=== PATIENT | male | born 1935 | race Caucasian/White ===

== ENCOUNTER 2021-05-21 17:38 | Inpatient (IN) | payer MEDICARE ==
[2021-05-21] MEDS ORDERED: Sodium Chloride 0.9% 1,000 ML IV SCH ×2 (18:45→23:45)
--- NOTE | 2021-05-21 20:27 | EDM.PDOC ---
ED HPI GENERAL MEDICAL PROBLEM - General Chief Complaint: Respiratory Problem Stated Complaint: DIZZY VIA NORTH Time Seen by Provider: 05/21/21 18:29 Source of Information: Reports: Patient History Limitations: Reports: No Limitations - History of Present Illness INITIAL COMMENTS - FREE TEXT/NARRATIVE: Luis Manuel is an 85-year-old male presenting to the ED for evaluation of lighthea dedness for the last 3 days followed by shortness of breath that started 2 days ago and has progressed. The patient has a history significant for cardiac disease status post three-vessel CABG in 1995. He has a history of congestive heart failure. He also has a history of COPD from working in the [employer] industry for 36 years. In addition, he has BPH, hypertension, and hyperlipidemia. The patient was in his usual state of health when the dizziness began. He is not sure if he has been taking enough fluid. Today he was checking his home oxygen saturations and they were low in the 80s. He tried to use his rescue inhaler, however, he did not feel any better and EMS was called. He did receive a DuoNeb in route and had improvement in his oxygenation and his breathing. The patient is also been experiencing intermittent epigastric pain over the last 2 days. Episodes last a few seconds and are sharp and stabbing. They are not associated with any nausea or vomiting. Mid-Sternal Chest Pain Score (Numeric/FACES): 5 - Related Data Allergies Allergy/AdvReac Type Severity Reaction Status Date / Time amoxicillin Allergy Diarrhea Verified 05/21/21 18:19 benzocaine Allergy Nausea Verified 05/21/21 18:19 Penicillins Allergy Cannot Verified 05/21/21 17:46 Remember ramipril Allergy Cough Verified 05/21/21 18:19 Home Meds: Home Meds Albuterol [Proventil Neb Soln] 1 ampule INH QID PRN 05/21/21 [History] Aspirin 81 mg PO DAILY 05/21/21 [History] Aspirin/Dipyridamole [Aggrenox 200-25 MG] 1 cap PO BID 05/21/21 [History] Azithromycin 250 mg PO DAILY 05/21/21 [History] Budesonide/Formoterol Fumarate [Symbicort 160-4.5 Mcg Inhaler] 2 puff IH BID 05/21/21 [History] Cetirizine [ZyrTEC] 10 mg PO DAILY 05/21/21 [History] ClonazePAM [KlonoPIN] 0.5 mg PO BID PRN 05/21/21 [History] Finasteride 5 mg PO DAILY 05/21/21 [History] Fluticasone Propionate [Flonase] 2 spray NASBOTH DAILY 05/21/21 [History] Folic Acid 0.8 mg PO DAILY 05/21/21 [History] Furosemide [Lasix] 40 mg PO Q48H 05/21/21 [History] Gabapentin [Neurontin] 300 mg PO TID 05/21/21 [History] Ipratropium [Atrovent HFA Inh] 1 puff INH Q6H PRN 05/21/21 [History] Isosorbide Mononitrate [Imdur] 15 mg PO DAILY 05/21/21 [History] Metoprolol Tartrate 50 mg PO BID 05/21/21 [History] NIFEdipine [Adalat cc] 60 mg PO DAILY 05/21/21 [History] Nitroglycerin 0.4 mg SL ASDIRECTED PRN 05/21/21 [History] Omeprazole 20 mg PO ACBREAKFAST 05/21/21 [History] Roflumilast [Daliresp] 500 mcg PO DAILY 05/21/21 [History] Sertraline [Zoloft] 150 mg PO DAILY 05/21/21 [History] Simethicone 80 mg PO QID PRN 05/21/21 [History] Tamsulosin [Tamsulosin 24 Hr] 0.4 mg PO BEDTIME 05/21/21 [History] Timolol [Betimol] 1 drop OP BEDTIME 05/21/21 [History] Zolpidem Tartrate [Ambien] 5 mg PO BEDTIME 05/21/21 [History] atorvaSTATin [Lipitor] 40 mg PO BEDTIME 05/21/21 [History] guaiFENesin [Mucinex] 1,200 mg PO DAILY 05/21/21 [History] Past Medical History HEENT History: Reports: Cataract Cardiovascular History: Reports: Bypass, Heart Failure, High Cholesterol, Hypertension, [place], SOB on Exertion Respiratory History: Reports: COPD Gastrointestinal History: Reports: Other (See Below) Other Gastrointestinal History: Hernia Genitourinary History: Reports: Urinary Incontinence Musculoskeletal History: Reports: Fracture - Past Surgical History HEENT Surgical History: Reports: Cataract Surgery Cardiovascular Surgical History: Reports: Coronary Artery Bypass Social & Family History - Tobacco Use Tobacco Use Status *Q: Never Tobacco User - Caffeine Use Caffeine Use: Reports: Coffee - Recreational Drug Use Recreational Drug Use: No ED ROS GENERAL - Review of Systems Review Of Systems: See Below Constitutional: Reports: Malaise HEENT: Reports: No Symptoms Respiratory: Reports: Shortness of Breath, Wheezing, Cough. Denies: Sputum Cardiovascular: Reports: Edema, Lightheadedness Endocrine: Reports: No Symptoms GI/Abdominal: Reports: Abdominal Pain (Intermittent sharp, stabbing epigastric pain lasting a few seconds.) : Reports: No Symptoms Musculoskeletal: Reports: No Symptoms Skin: Reports: No Symptoms Neurological: Reports: No Symptoms Psychiatric: Reports: No Symptoms Hematologic/Lymphatic: Reports: No Symptoms Immunologic: Reports: No Symptoms ED EXAM, GENERAL - Physical Exam Exam: See Below Exam Limited By: No Limitations General Appearance: Alert, Mild Distress Eye Exam: Bilateral Eye: EOMI, PERRL Throat/Mouth: Normal Inspection, Normal Oropharynx, Normal Voice, No Airway Compromise Head: Atraumatic, Normocephalic Neck: Normal Inspection, Supple, Non-Tender, Full Range of Motion. No: Carotid Bruit Respiratory/Chest: No Respiratory Distress, No Accessory Muscle Use, Chest Non- Tender, Decreased Breath Sounds (In the bases bilaterally), Wheezing (Scant inspiratory with pronounced expiratory wheezes throughout the lung rose bilaterally.), Prolonged Expiration Cardiovascular: Normal Peripheral Pulses, Regular Rate, Rhythm, Systolic Murmur (3/6 systolic ejection murmur) Peripheral Pulses: 2+: Radial (L), Radial (R), Posterior Tibial (L), Posterior Tibial (R) GI/Abdominal: Normal Bowel Sounds, Soft, Non-Tender Back Exam: Normal Inspection Extremities: Normal Inspection, Normal Range of Motion, Pedal Edema (1+) Neurological: Alert, Oriented, Normal Cognition, No Motor/Sensory Deficits Psychiatric: Normal Affect Skin Exam: Warm, Dry, Intact, Normal Color Lymphatic: No Adenopathy #1 Interpretation EKG Date: 05/21/21 Time: 18:52 Rhythm: NSR Rate (Beats/Min): 71 [place]: Normal P-Wave: Present (Prolonged VA interval at 246 ms) QRS: Normal (Nonspecific interventricular conduction delay) ST-T: Normal QT: Prolonged Comparison: NA - No Prior EKG Course - Vital Signs Last Recorded V/S: Last Vital Signs Temp 36.4 C 05/21/21 20:46 Pulse 73 05/21/21 20:46 Resp 18 05/21/21 20:46 BP 135/87 05/21/21 20:46 Pulse Ox 98 05/21/21 20:46 Orthostatic Blood Pressure [ 126/70 Standing] Orthostatic Blood Pressure [ 138/73 Sitting] Orthostatic Blood Pressure [ 134/72 Supine] - Orders/Labs/Meds Orders: Active Orders 24 hr Category Date Time Status EKG Documentation Completion [RC] ASDIRECTED Care 05/21/21 18:43 Active Orthostatic Vital Signs [RC] ASDIRECTED Care 05/21/21 17:43 Active Chest 2V [CR] Stat Exams 05/21/21 18:43 Taken Sodium Chloride 0.9% [Normal Saline] 1,000 ml Med 05/21/21 18:45 Active IV ASDIRECTED EKG 12 Lead [EK] Routine Ther 05/21/21 18:43 Ordered Medication Orders Sodium Chloride (Normal Saline) 1,000 mls @ 500 mls/hr IV ASDIRECTED FRANCO Last Admin: 05/21/21 18:58 Dose: 500 mls/hr Documented by: AVILA Labs: Laboratory Tests 05/21/21 05/21/21 05/21/21 Range/Units 18:50 18:50 19:00 WBC 7.3 (4.5-11.0) K/uL RBC 3.79 L (4.30-5.90) M/uL Hgb 12.4 (12.0-15.0) g/dL Hct 38.6 L (40.0-54.0) % MCV 102 H (80-98) fL MCH 33 H (27-31) pg MCHC 32 (32-36) % Plt Count 164 (150-400) K/uL Neut % (Auto) 60.2 (36-66) % Lymph % (Auto) 24.6 (24-44) % [place] % (Auto) 12.7 H (2-6) % Eos % (Auto) 2.2 (2-4) % Baso % (Auto) 0.3 (0-1) % Sodium 142 (140-148) mmol/L Potassium 3.3 L (3.6-5.2) mmol/L Chloride 103 (100-108) mmol/L Carbon Dioxide 27 (21-32) mmol/L Anion Gap 15.3 H (5.0-14.0) mmol/L BUN 24 H (7-18) mg/dL Creatinine 1.6 H (0.8-1.3) mg/dL Est Cr Clr Drug Dosing 32.13 mL/min Estimated GFR (MDRD) 41 L (>60) Glucose 101 (74-106) mg/dL Calcium 8.7 (8.5-10.1) mg/dL Total Bilirubin 0.3 (0.2-1.0) mg/dL AST 17 (15-37) U/L ALT 24 (12-78) U/L Alkaline Phosphatase 60 (46-116) U/L Troponin I < 0.017 (0.000-0.056) ng/mL NT-Pro-B Natriuret Pep 1699 H (5-450) pg/mL Total Protein 6.3 L (6.4-8.2) g/dL Albumin 3.6 (3.4-5.0) g/dL Globulin 2.7 (2.3-3.5) g/dL Albumin/Globulin Ratio 1.3 (1.2-2.2) Urine Color Yellow (YELLOW) Urine Appearance Clear (CLEAR) Urine pH 5.5 (5.0-8.0) Ur Specific [place] <= 1.005 L (1.008-1.030) Urine Protein 30 H (NEGATIVE) mg/dL Urine Glucose (UA) Negative (NEGATIVE) mg/dL Urine Ketones Negative (NEGATIVE) mg/dL Urine Occult Blood Negative (NEGATIVE) Urine Nitrite Negative (NEGATIVE) Urine Bilirubin Negative (NEGATIVE) Urine Urobilinogen 0.2 (0.2-1.0) EU/dL Ur Leukocyte Esterase Negative (NEGATIVE) Urine RBC Not seen (0-5) Urine WBC Not seen (0-5) Ur Epithelial Cells Not seen Amorphous Sediment Not seen Urine Bacteria Not seen Urine Mucus Not seen Urine Other Meds: Medications Generic Name Dose Route Start Last Admin Trade Name Freq PRN Reason Stop Dose Admin Sodium Chloride 1,000 mls @ 500 mls/hr 05/21/21 18:45 05/21/21 18:58 Normal Saline IV 500 mls/hr ASDIRECTED FRANCO Administration Discontinued Medications Generic Name Dose Route Start Last Admin Trade Name Freq PRN Reason Stop Dose Admin Al Hydroxide/Mg Hydroxide 15 0 ml 05/21/21 20:43 05/21/21 21:05 ml/ Lidocaine HCl 15 ml PO 05/21/21 20:44 30 ml ONETIME ONE Administration - Radiology Interpretation Free Text/Narrative:: I reviewed the two-view chest x-ray showing hyperinflation of the lungs. Very torturous thoracic aorta and normal cardiac silhouette. There is no evidence for acute infiltrates. - Re-Assessments/Exams Free Text/Narrative Re-Assessment/Exam: 05/21/21 20:36 I reviewed the patient's chest x-ray showing hyperinflation and fibrosis consistent with COPD. He has a very torturous thoracic aorta and normal cardiac silhouette. I reviewed his labs showing a leukocyte count of 7.3 with a hemoglobin of 12.4 and hematocrit of 38.6. Platelet count is 164,000. His comprehensive metabolic panel is significant for sodium 142, potassium 3.3, chloride of 103, bicarbonate of 27, BUN of 24 with a creatinine 1.6. His glucose is 101. Troponin is negative at less than 0.017. BNP is elevated at 1699. Urinalysis was unremarkable. Appears to be acute exacerbation of COPD. The patient is already on an aggressive assortment of inhalers. The has concerns about taking him home given his limited mobility at this time. Normally he is able ambulate without assistance. 05/21/21 21:45 nursing got the patient up and tried to ambulate with him. He desatted very quickly to below 89% on room air. He was fairly unsteady on his feet raising concern about fall at home. Given his acute exacerbation of COPD with hypoxia and his increased unsteadiness, I am recommending that we probably admit him for further care. I discussed the case with Ashlee Lawrence CNP who agrees with this plan. Departure - Departure Time of Disposition: 22:26 Disposition: Admitted As Inpatient 67 Clinical Impression: Acute exacerbation of chronic obstructive pulmonary disease (COPD), Gait instability, Hypoxia - Discharge Information Referrals: PCP,None [Primary Care Provider] - Forms: ED Department Discharge Sepsis Event Note (ED) - Evaluation Sepsis Screening Result: No Definite Risk - Focused Exam Vital Signs: Vital Signs Temp Pulse Resp BP Pulse Ox 05/21/21 20:46 36.4 C 73 18 135/87 98 05/21/21 20:16 72 18 116/83 97 05/21/21 19:02 72 14 140/75 98 05/21/21 18:38 72 16 142/78 H 97 05/21/21 17:51 36.6 C 73 17 144/78 H 99 05/21/21 17:49 36.6 C 73 17 144/78 H 99 - Problem List & Annotations (1) Acute exacerbation of chronic obstructive pulmonary disease (COPD) SNOMED Code(s): 607433631 Code(s): J44.1 - CHRONIC OBSTRUCTIVE PULMONARY DISEASE W (ACUTE) EXACERBATION Status: Acute Priority: High Current Visit: Yes (2) Gait instability SNOMED Code(s): 41310047 Code(s): R26.81 - UNSTEADINESS ON FEET Status: Acute Priority: High Current Visit: Yes (3) Hypoxia SNOMED Code(s): 249943142 Code(s): R09.02 - HYPOXEMIA Status: Acute Priority: High Current Visit: Yes - Problem List Review Problem List Initiated/Reviewed/Updated: Yes - My Orders Last 24 Hours: My Active Orders 05/21/21 18:43 EKG Documentation Completion [RC] ASDIRECTED Chest 2V [CR] Stat EKG 12 Lead [EK] Routine 05/21/21 18:45 Sodium Chloride 0.9% [Normal Saline] 1,000 ml IV ASDIRECTED - Assessment/Plan Last 24 Hours: My Active Orders 05/21/21 18:43 EKG Documentation Completion [RC] ASDIRECTED Chest 2V [CR] Stat EKG 12 Lead [EK] Routine 05/21/21 18:45 Sodium Chloride 0.9% [Normal Saline] 1,000 ml IV ASDIRECTED
[2021-05-21] MEDS ORDERED: Alum Hydrox/Mag Hydrox/Simeth 15 ML, Lidocaine 2% 15 ML PO ONE ×2 (20:43)
--- NOTE | 2021-05-21 23:04 | PCM.HP.2 ---
H&P History of Present Illness - General Date of Service: 05/21/21 Admit Problem/Dx: Admission Diagnosis/Problem Admission Diagnosis/Problem Chronic obstructive pulmonary disease with hypoxia Source of Information: Patient, EMS Notes Reviewed, Provider, RN History Limitations: Reports: No Limitations - History of Present Illness Initial Comments - Free Text/Narative: chief complaint: shortness of breath. This is a 85 year old male presents to the ER via EMS, reports in on vacation at one of the local resorts near [place], [place]. for one week. Develops shortness of breath about 4 days ago with the past two days increase in symptoms. Reports f eeling dizzy, headache, shortness of breath with any type of activity. He had a painful cough. weakness more today and increased difficulty with walking. Today could not get up and ambulance was called Onset of Symptoms: Reports: Gradual Symptom Onset Date: 05/18/21 Duration of Symptoms: Reports: Day(s):, Getting Worse Location: Reports: Chest, Generalized Quality: Reports: Same as Previous Episode Severity: Moderate Improves with: Reports: Rest Worsens with: Reports: Movement Context: Reports: Other (excerbation of chronic disease) Associated Symptoms: Reports: Cough (painful cough), Fever/Chills (chills today without fever.), Shortness of Breath, Weakness Mid-Sternal Chest Pain Score (Numeric/FACES): 5 - Related Data Allergies/Adverse Reactions: Allergies Allergy/AdvReac Type Severity Reaction Status Date / Time amoxicillin Allergy Diarrhea Verified 05/21/21 18:19 benzocaine Allergy Nausea Verified 05/21/21 18:19 Penicillins Allergy Cannot Verified 05/21/21 17:46 Remember ramipril Allergy Cough Verified 05/21/21 18:19 Home Medications: Home Meds Albuterol [Proventil Neb Soln] 1 ampule INH QID PRN 05/21/21 [History] Aspirin 81 mg PO DAILY 05/21/21 [History] Aspirin/Dipyridamole [Aggrenox 200-25 MG] 1 cap PO BID 05/21/21 [History] Azithromycin 250 mg PO DAILY 05/21/21 [History] Budesonide/Formoterol Fumarate [Symbicort 160-4.5 Mcg Inhaler] 2 puff IH BID 05/21/21 [History] Cetirizine [ZyrTEC] 10 mg PO DAILY 05/21/21 [History] ClonazePAM [KlonoPIN] 0.5 mg PO BID PRN 05/21/21 [History] Finasteride 5 mg PO DAILY 05/21/21 [History] Fluticasone Propionate [Flonase] 2 spray NASBOTH DAILY 05/21/21 [History] Folic Acid 0.8 mg PO DAILY 05/21/21 [History] Furosemide [Lasix] 40 mg PO Q48H 05/21/21 [History] Gabapentin [Neurontin] 300 mg PO TID 05/21/21 [History] Ipratropium [Atrovent HFA Inh] 1 puff INH Q6H PRN 05/21/21 [History] Isosorbide Mononitrate [Imdur] 15 mg PO DAILY 05/21/21 [History] Metoprolol Tartrate 50 mg PO BID 05/21/21 [History] NIFEdipine [Adalat cc] 60 mg PO DAILY 05/21/21 [History] Nitroglycerin 0.4 mg SL ASDIRECTED PRN 05/21/21 [History] Omeprazole 20 mg PO ACBREAKFAST 05/21/21 [History] Roflumilast [Daliresp] 500 mcg PO DAILY 05/21/21 [History] Sertraline [Zoloft] 150 mg PO DAILY 05/21/21 [History] Simethicone 80 mg PO QID PRN 05/21/21 [History] Tamsulosin [Tamsulosin 24 Hr] 0.4 mg PO BEDTIME 05/21/21 [History] Timolol [Betimol] 1 drop OP BEDTIME 05/21/21 [History] Zolpidem Tartrate [Ambien] 5 mg PO BEDTIME 05/21/21 [History] atorvaSTATin [Lipitor] 40 mg PO BEDTIME 05/21/21 [History] guaiFENesin [Mucinex] 1,200 mg PO DAILY 05/21/21 [History] Past Medical History HEENT History: Reports: Cataract Cardiovascular History: Reports: Bypass, Heart Failure, High Cholesterol, Hypertension, LA, SOB on Exertion Respiratory History: Reports: COPD Gastrointestinal History: Reports: Other (See Below) Other Gastrointestinal History: Hernia Genitourinary History: Reports: Urinary Incontinence Musculoskeletal History: Reports: Fracture - Past Surgical History HEENT Surgical History: Reports: Cataract Surgery Cardiovascular Surgical History: Reports: Coronary Artery Bypass Social & Family History - Tobacco Use Tobacco Use Status *Q: Never Tobacco User - Caffeine Use Caffeine Use: Reports: Coffee - Recreational Drug Use Recreational Drug Use: No - Living Situation & Occupation Living situation: Reports: Occupation: Retired (lives with his who is 33 years younger, together have a 25 year old Daughter and 8 year old adopted Son.) H&P Review of Systems - Review of Systems: Review Of Systems: See Below General: Reports: Chills, Malaise, Weakness, Decreased Appetite HEENT: Reports: Other (cataracts) Pulmonary: Reports: Shortness of Breath, Wheezing, Pleuritic Chest Pain, Cough, Other (home oxygen and Cpap at night, can use oxygen during the day.) Cardiovascular: Reports: No Symptoms, Dyspnea on Exertion. Denies: Edema Gastrointestinal: Reports: No Symptoms Genitourinary: Reports: No Symptoms Musculoskeletal: Reports: No Symptoms Skin: Reports: No Symptoms Psychiatric: Reports: No Symptoms Neurological: Reports: No Symptoms Hematologic/Lymphatic: Reports: No Symptoms Immunologic: Reports: No Symptoms Exam - Exam Exam: See Below - Vital Signs Vital Signs: Last Vital Signs Temp 97.6 F 05/21/21 20:46 Pulse 73 05/21/21 20:46 Resp 18 05/21/21 20:46 BP 135/87 05/21/21 20:46 Pulse Ox 98 05/21/21 20:46 Orthostatic Blood Pressure [ 126/70 Standing] Orthostatic Blood Pressure [ 138/73 Sitting] Orthostatic Blood Pressure [ 134/72 Supine] Weight: 185 lb - Exam Quality Assessment: Supplemental Oxygen, DVT Prophylaxis General: Alert, Oriented, Cooperative, Mild Distress HEENT: PERRLA, Conjunctiva Clear, EACs Clear, EOMI, Hearing Intact, Mucosa Moist & [place] Neck: Supple, Trachea Midline, Full Range of Motion Lungs: Decreased Breath Sounds (bilateral), Crackles, Rales, Rhonchi, Wheezing (bilateral expiratory) Cardiovascular: Regular Rate, Regular Rhythm, Normal S1, Normal S2, Systolic Murmur (3/6) GI/Abdominal Exam: Normal Bowel Sounds, Soft, Non-Tender (Male) Exam: Deferred Rectal (Males) Exam: Deferred Back Exam: Normal Inspection, Full Range of Motion Extremities: Normal Inspection, Normal Range of Motion, Non-Tender, No Pedal Edema, Normal Capillary Refill Peripheral Pulses: 2+: Brachial (L), Brachial (R) Skin: Warm, Dry, Intact Neurological: Cranial Nerves Intact, Reflexes Equal Bilateral Neuro Extensive - Mental Status: Alert, Oriented x3, Normal Mood/Affect, Normal Cognition Neuro Extensive - Motor, Sensory, Reflexes: CN II-XII Intact, Normal Gait, Normal Reflexes Psychiatric: Alert, Normal Affect, Normal Mood - Patient Data Lab Results Last 24 hrs: Laboratory Results - last 24 hr 05/21/21 05/21/21 05/21/21 Range/Units 18:50 18:50 19:00 WBC 7.3 (4.5-11.0) K/uL RBC 3.79 L (4.30-5.90) M/uL Hgb 12.4 (12.0-15.0) g/dL Hct 38.6 L (40.0-54.0) % MCV 102 H (80-98) fL MCH 33 H (27-31) pg MCHC 32 (32-36) % Plt Count 164 (150-400) K/uL Neut % (Auto) 60.2 (36-66) % Lymph % (Auto) 24.6 (24-44) % [place] % (Auto) 12.7 H (2-6) % Eos % (Auto) 2.2 (2-4) % Baso % (Auto) 0.3 (0-1) % Sodium 142 (140-148) mmol/L Potassium 3.3 L (3.6-5.2) mmol/L Chloride 103 (100-108) mmol/L Carbon Dioxide 27 (21-32) mmol/L Anion Gap 15.3 H (5.0-14.0) mmol/L BUN 24 H (7-18) mg/dL Creatinine 1.6 H (0.8-1.3) mg/dL Est Cr Clr Drug Dosing 32.13 mL/min Estimated GFR (MDRD) 41 L (>60) Glucose 101 (74-106) mg/dL Calcium 8.7 (8.5-10.1) mg/dL Total Bilirubin 0.3 (0.2-1.0) mg/dL AST 17 (15-37) U/L ALT 24 (12-78) U/L Alkaline Phosphatase 60 (46-116) U/L Troponin I < 0.017 (0.000-0.056) ng/mL NT-Pro-B Natriuret Pep 1699 H (5-450) pg/mL Total Protein 6.3 L (6.4-8.2) g/dL Albumin 3.6 (3.4-5.0) g/dL Globulin 2.7 (2.3-3.5) g/dL Albumin/Globulin Ratio 1.3 (1.2-2.2) Urine Color Yellow (YELLOW) Urine Appearance Clear (CLEAR) Urine pH 5.5 (5.0-8.0) Ur Specific [place] <= 1.005 L (1.008-1.030) Urine Protein 30 H (NEGATIVE) mg/dL Urine Glucose (UA) Negative (NEGATIVE) mg/dL Urine Ketones Negative (NEGATIVE) mg/dL Urine Occult Blood Negative (NEGATIVE) Urine Nitrite Negative (NEGATIVE) Urine Bilirubin Negative (NEGATIVE) Urine Urobilinogen 0.2 (0.2-1.0) EU/dL Ur Leukocyte Esterase Negative (NEGATIVE) Urine RBC Not seen (0-5) Urine WBC Not seen (0-5) Ur Epithelial Cells Not seen Amorphous Sediment Not seen Urine Bacteria Not seen Urine Mucus Not seen Urine Other Result Diagrams: 05/21/21 18:50 05/21/21 18:50 Sepsis Event Note - Evaluation Sepsis Screening Result: No Definite Risk - Focused Exam Vital Signs: Vital Signs Temp Pulse Resp BP Pulse Ox 05/21/21 20:46 97.6 F 73 18 135/87 98 05/21/21 20:16 72 18 116/83 97 05/21/21 19:02 72 14 140/75 98 05/21/21 18:38 72 16 142/78 H 97 05/21/21 17:51 97.8 F 73 17 144/78 H 99 05/21/21 17:49 97.8 F 73 17 144/78 H 99 - Problem List (1) Acute exacerbation of chronic obstructive pulmonary disease (COPD) SNOMED Code(s): 864212966 ICD Code: J44.1 - CHRONIC OBSTRUCTIVE PULMONARY DISEASE W (ACUTE) EXACERBATION Status: Acute Priority: High Current Visit: Yes (2) Coronary artery disease SNOMED Code(s): 40990881 ICD Code: I25.10 - ATHSCL HEART DISEASE OF [place] CORONARY ARTERY W/O ANG PCTRS Status: Acute Priority: Low Current Visit: Yes Qualifiers: Coronary Disease-Associated Artery/Lesion type: unspecified vessel or lesion type [place] vs. transplanted heart: [place] heart (3) Hypertension SNOMED Code(s): 15368627 ICD Code: I10 - ESSENTIAL (PRIMARY) HYPERTENSION Status: Acute Priority: High Current Visit: Yes Qualifiers: Hypertension type: essential hypertension Qualified Code(s): I10 - Essential (primary) hypertension (4) Hypokalemia SNOMED Code(s): 08983402 ICD Code: E87.6 - HYPOKALEMIA Status: Acute Priority: Medium Current Visit: Yes Problem List Initiated/Reviewed/Updated: Yes Orders Last 24hrs: Active Orders 24 hr Category Date Time Status Patient Status Manage Transfer [TRANSFER] Routine ADT 05/21/21 22:38 Active EKG Documentation Completion [RC] ASDIRECTED Care 05/21/21 18:43 Active Orthostatic Vital Signs [RC] ASDIRECTED Care 05/21/21 17:43 Active Chest 2V [CR] Stat Exams 05/21/21 18:43 Taken Sodium Chloride 0.9% [Normal Saline] 1,000 ml Med 05/21/21 18:45 Active IV ASDIRECTED Resuscitation Status Routine Resus Stat 05/21/21 22:43 Ordered EKG 12 Lead [EK] Routine Ther 05/21/21 18:43 Ordered Medication Orders Sodium Chloride (Normal Saline) 1,000 mls @ 500 mls/hr IV ASDIRECTED FRANCO Last Admin: 05/21/21 18:58 Dose: 500 mls/hr Documented by: AVILA Assessment/Plan Comment:: Assessment/Plan Comment:: ASSESSMENT AND PLAN OF CARE- COPD WITH HYPOXIA reports being short of breath for 4 days the past two day worse with shortness of breath and worsen cough. ER workup shows elevated WBC 7.3, hgb 12.4, hct 38.6, Chemistry Na+ 142, K+ 3.3, Cl 103, anion gap 15.3, BUN 24, Cr 1.6, glucose 101, Co2 27, . Xray chest with fibrosis. Plan to hospital admission for further care and treatment. Patient agree with plan of care. COPD with hypoxia -Admit to [address] [place] [address] for further monitoring -IV Fluids for rehydration NS at 75 ml/hr -IV Antibiotic; Rocephin 1 gram IV every 24 hours -IV Zithromax 500mg every 24 hours -oxygen to keep sats greater than 95% -IV Solumedrol 62.5 mg every 6 hours -schedule Duo nebs every 6 hours, Albuterol nebs every 4 hours prn -Cpap at night with oxygen -Advise to notify nurses of any chest pain or other symptoms -And a.m. labs: CBC, BMP Coronary Artery Disease -continue outpatient medication plan Hypertension -continue outpatient medication Hypokalemia- Potassium 3.3 on admission -Potassium 20 meq one time -recheck Potassium in am Maintenance issues -Orders home medications: chronic medication -Nutrition- regular diet -Jhaveri catheter -not indicated at this time -DVT - Lovenox 40 mg subcut daily -PPI - IV Protonix 40mg daily CODE STATUS: DNR/DNI Admission status: Admit to [address] [place] [address] justification. This patient will be admitted for inpatient services and is medically appropriate meeting medical necessity for inpatient admission as outlined in my documentation. I reasonably expect the patient will require inpatient services that span. Time over 2 midnights. I reasonably expect this patient to be discharged or transferred within 96 hours after admission to the critical access hospital. Disposition: home with Family Primary care provider: Dr. Juan Luis Madrid, [facility], [facility]. Hospitalist: Dr. Li - Mortality Measure Prognosis:: Good - Mortality Measure Prognosis:: Good
[2021-05-21] MEDS ORDERED: Simethicone 80 MG Tab.Chew PO PRN (23:45)
[2021-05-21] MEDS ORDERED: Albuterol 0.083% 2.5 MG/3 ML Neb Soln NEB PRN (23:45)
[2021-05-21] MEDS ORDERED: ClonazePAM 0.5 MG Tab PO PRN (23:45)
[2021-05-21] MEDS ORDERED: oxyCODONE 5 MG Tab PO PRN (23:45)
[2021-05-21] MEDS ORDERED: Ondansetron 4 MG Tab.DIS PO PRN (23:45)
[2021-05-21] MEDS ORDERED: Nitroglycerin 0.4 MG Tab.SL SL PRN (23:45)
[2021-05-21] MEDS ORDERED: Morphine 2 MG/ML SYRINGE IVPUSH PRN (23:45)
[2021-05-21] MEDS ORDERED: Potassium Chloride 20 MEQ Tab.ER PO ONE (23:45)
[2021-05-21] MEDS ORDERED: Docusate Sodium 100 MG Cap PO PRN (23:45)
[2021-05-21] MEDS ORDERED: Bisacodyl 5 MG Tab PO PRN (23:45)
[2021-05-21] MEDS ORDERED: Furosemide 40 MG Tab PO SCH (23:45)
[2021-05-21] MEDS ORDERED: Ondansetron 4 MG/2 ML SDV IV PRN (23:45)
[2021-05-22] MEDS ORDERED: cefTRIAXone 1 GM in Sodium Chloride 0.9% 50 ML IV SCH ×2
[2021-05-22] MEDS ORDERED: Azithromycin 500 MG in Sodium Chloride 0.9% 250 ML IV SCH ×2
[2021-05-22] MEDS: Tamsulosin 0.4 MG Cap.ER PO SCH ×2 (00:57→21:47)
[2021-05-22] MEDS: Metoprolol Tartrate 50 MG Tab PO SCH ×3 (00:58→21:47)
[2021-05-22] MEDS: Zolpidem 5 MG Tab PO SCH ×2 (00:58→21:46)
[2021-05-22] MEDS: Gabapentin 300 MG Cap PO SCH ×4 (00:58→21:47)
[2021-05-22] MEDS: methylPREDNISolone Sodium Succinate 125 MG/2 ML SDV IV SCH ×5 (01:00→23:43)
[2021-05-22] MEDS: Albuterol/Ipratropium 3.0-0.5 MG/3 ML Neb Soln NEB SCH ×5 (01:01→21:47)
[2021-05-22] MEDS: Fluticasone Propionate Nasal Spray 16 GM Bottle NASBOTH SCH (08:18)
[2021-05-22] MEDS: Enoxaparin 40 MG/0.4 ML Syringe SUBCUT SCH (08:19)
[2021-05-22] MEDS: Furosemide 40 MG Tab PO SCH (08:20)
[2021-05-22] MEDS: Isosorbide Mononitrate 30 MG Tab.ER PO SCH (08:21)
[2021-05-22] MEDS: Finasteride 5 MG Tab PO SCH (08:26)
[2021-05-22] MEDS: Sertraline 50 MG Tab PO SCH (08:26)
[2021-05-22] MEDS: NIFEdipine 30 MG Tab.ER PO SCH (08:26)
--- NOTE | 2021-05-22 08:49 | CR ---
CHEST: 2 view CLINICAL HISTORY:Dyspnea, dizziness COMPARISON:None FINDINGS: Heart is mildly enlarged pulmonary vascularity is normal. Patient has had a previous sternotomy. There are atherosclerotic changes in the aorta.. There is diffuse interstitial prominence. This may be chronic. Diffuse pneumonitis is not excluded. IMPRESSION: Cardiomegaly Previous sternotomy Generalized interstitial prominence. Some of this may be chronic. Some superimposed pneumonitis or edema is not excluded
[2021-05-22] MEDS ORDERED: Pantoprazole 40 MG Vial IV SCH (09:00)
[2021-05-22] MEDS: Folic Acid 1 MG Tab PO SCH (12:35)
[2021-05-22] MEDS: ROFLUMILAST 500 MCG PO SCH (15:08)
[2021-05-22] MEDS: ASPIRIN PO SCH ×2 (15:09→21:49)
[2021-05-22] MEDS: DIPYRIDAMOLE PO SCH ×2 (15:09→21:49)
[2021-05-22] MEDS ORDERED: Furosemide 40 MG/4 ML VIAL IVPUSH ONE (16:00)
[2021-05-22] MEDS ORDERED: Potassium Chloride 20 MEQ Tab.ER PO ONE (16:00)
[2021-05-22] MEDS: Acetaminophen 325 MG Tab PO PRN ×2 (19:21→23:48)
--- NOTE | 2021-05-22 19:24 | PCM.PN ---
- General Info Date of Service: 05/22/21 Admission Dx/Problem (Free Text): Admission Diagnosis/Problem Admission Diagnosis/Problem Chronic obstructive pulmonary disease with hypoxia Subjective Update: Mr. Vaughn had no events overnight. He is saturating in the upper 90s on 1 L nasal cannula which may not be necessary. He is having a little trouble ambulating on his feet because he does have dizziness when he stands. He had difficulty getting to the bathroom today and needed help. His biggest complaint today is weakness. He is not coughing or producing any sputum. He is not wheezing. I did have a long discussion with him and his today regarding his symptoms and his prior medical conditions. His stated that he has had this issue for a few days now and it seems to be more so associated with the epigastric pain rather than the shortness of breath. She also states that when he had a heart attack in 1995 it expressed as epigastric pain, she specifically remembers this because they tried to treat him for stomach issues originally before discovering that he was having a heart attack. Had a triple bypass at that time. He has been on oxygen at night for approximately 10 years and has not been evaluated for the need for home oxygen during the daytime or with activity. She says the last time that may have been addressed would have been over a year ago before the pandemic began when he was last seen for pneumonia. He states that he takes a Z-Óscar on a regular basis to prevent COPD exacerbations and he is supposed to pickle pumper this prescription for next week. Functional Status: Reports: Pain Controlled, Tolerating Diet, Ambulating, Urinating - Review of Systems General: Reports: Weakness, Appetite. Denies: Fever, Chills HEENT: Reports: No Symptoms. Denies: Headaches, Visual Changes Pulmonary: Denies: Shortness of Breath, Cough, Wheezing Cardiovascular: Reports: Edema, Lightheadedness. Denies: Chest Pain, Palpitations Gastrointestinal: Reports: No Symptoms. Denies: Abdominal Pain, Constipation, Diarrhea, Nausea, Vomiting Genitourinary: Reports: No Symptoms. Denies: Dysuria, Frequency, Urgency Musculoskeletal: Reports: No Symptoms Skin: Reports: No Symptoms Neurological: Reports: Dizziness, Weakness. Denies: Confusion, Headache, Syncope Psychiatric: Reports: No Symptoms. Denies: Confusion - Patient Data Vitals - Most Recent: Last Vital Signs Temp 96.6 F L 05/22/21 15:14 Pulse 84 05/22/21 15:14 Resp 18 05/22/21 15:14 BP 109/57 L 05/22/21 15:14 Pulse Ox 96 05/22/21 15:14 Orthostatic Blood Pressure [ 126/70 Standing] Orthostatic Blood Pressure [ 138/73 Sitting] Orthostatic Blood Pressure [ 134/72 Supine] Weight - Most Recent: 185 lb 0.014 oz I&O - Last 24 Hours: Intake & Output 05/22/21 05/22/21 05/22/21 06:59 14:59 22:59 Intake Total 960 Balance 960 Lab Results Last 24 Hours: Laboratory Results - last 24 hr 05/21/21 05/22/21 05/22/21 Range/Units 18:50 05:30 05:30 WBC 7.2 (4.5-11.0) K/uL RBC 3.84 L (4.30-5.90) M/uL Hgb 12.5 (12.0-15.0) g/dL Hct 39.1 L (40.0-54.0) % MCV 102 H (80-98) fL MCH 33 H (27-31) pg MCHC 32 (32-36) % Plt Count 153 (150-400) K/uL Neut % (Auto) 90.7 H (36-66) % Lymph % (Auto) 7.7 L (24-44) % [place] % (Auto) 1.4 L (2-6) % Eos % (Auto) 0.1 L (2-4) % Baso % (Auto) 0.1 (0-1) % Sodium 142 144 (140-148) mmol/L Potassium 3.3 L 4.1 (3.6-5.2) mmol/L Chloride 103 107 (100-108) mmol/L Carbon Dioxide 27 28 (21-32) mmol/L Anion Gap 15.3 H 8.7 (5.0-14.0) mmol/L BUN 24 H 19 H (7-18) mg/dL Creatinine 1.6 H 1.2 (0.8-1.3) mg/dL Est Cr Clr Drug Dosing 32.13 42.84 mL/min Estimated GFR (MDRD) 41 L 58 L (>60) Glucose 101 135 H (74-106) mg/dL Calcium 8.7 8.5 (8.5-10.1) mg/dL Total Bilirubin 0.3 (0.2-1.0) mg/dL AST 17 (15-37) U/L ALT 24 (12-78) U/L Alkaline Phosphatase 60 (46-116) U/L Troponin I < 0.017 (0.000-0.056) ng/mL NT-Pro-B Natriuret Pep 1699 H (5-450) pg/mL Total Protein 6.3 L (6.4-8.2) g/dL Albumin 3.6 (3.4-5.0) g/dL Globulin 2.7 (2.3-3.5) g/dL Albumin/Globulin Ratio 1.3 (1.2-2.2) Med Orders - Current: Current Medications Acetaminophen (Acetaminophen 325 Mg Tab) 650 mg PO Q4H PRN PRN Reason: Pain (Mild 1-3)/fever Albuterol (Albuterol 0.083% 2.5 Mg/3 Ml Neb Soln) 2.5 mg NEB Q4H PRN PRN Reason: Shortness Of Breath;wheezing Albuterol/Ipratropium (Albuterol/Ipratropium 3.0-0.5 Mg/3 Ml Neb Soln) 3 ml NEB QIDRT [facility] Last Admin: 05/22/21 14:32 Dose: 3 ml Documented by: Atorvastatin Calcium (Atorvastatin 20 Mg Tab) 40 mg PO BEDTIME [facility] Azithromycin (Azithromycin 250 Mg Tab) 500 mg PO DAILY [facility] Bisacodyl (Bisacodyl 5 Mg Tab) 5 mg PO DAILY PRN PRN Reason: Constipation Clonazepam (Clonazepam 0.5 Mg Tab) 0.5 mg PO BID PRN PRN Reason: Anxiety Docusate Sodium (Docusate Sodium 100 Mg Cap) 100 mg PO BID PRN PRN Reason: Constipation Enoxaparin Sodium (Enoxaparin 40 Mg/0.4 Ml Syringe) 40 mg SUBCUT DAILY [facility] Last Admin: 05/22/21 08:19 Dose: 40 mg Documented by: Finasteride (Finasteride 5 Mg Tab) 5 mg PO DAILY [facility] Last Admin: 05/22/21 08:26 Dose: 5 mg Documented by: Fluticasone Propionate (Fluticasone Propionate Nasal [place] 16 Gm Bottle) 0 gm NASBOTH DAILY [facility] Last Admin: 05/22/21 08:18 Dose: 2 sprays Documented by: Folic Acid (Folic Acid 1 Mg Tab) 1 mg PO DAILY [facility] Last Admin: 05/22/21 12:35 Dose: 1 mg Documented by: Furosemide (Furosemide 40 Mg Tab) 40 mg PO Q48H [facility] Last Admin: 05/22/21 08:20 Dose: 40 mg Documented by: Gabapentin (Gabapentin 300 Mg Cap) 300 mg PO TID [facility] Last Admin: 05/22/21 14:24 Dose: 300 mg Documented by: Isosorbide Mononitrate (Isosorbide Mononitrate 30 Mg Tab.Er) 15 mg PO DAILY [facility] Last Admin: 05/22/21 08:21 Dose: 15 mg Documented by: Methylprednisolone Sodium Succinate (Methylprednisolone Sodium Succinate 125 Mg/2 Ml Sdv) 62.5 mg IV Q6H [facility] Last Admin: 05/22/21 17:52 Dose: 62.5 mg Documented by: Metoprolol Tartrate (Metoprolol Tartrate 50 Mg Tab) 50 mg PO BID [facility] Last Admin: 05/22/21 08:24 Dose: 50 mg Documented by: Morphine Sulfate (Morphine 2 Mg/Ml Syringe) 2 mg IVPUSH Q2H PRN PRN Reason: Pain (severe 7-10) Nifedipine (Nifedipine 30 Mg Tab.Er) 60 mg PO DAILY [facility] Last Admin: 05/22/21 08:26 Dose: 60 mg Documented by: Nitroglycerin (Nitroglycerin 0.4 Mg Tab.Sl) 0.4 mg SL ASDIRECTED PRN PRN Reason: Chest Pain (Aspirin/Dipyridamole [ Aggrenox 200-25 Mg] 1 Cap Cap.Er) 0 cap PO BID [facility] Last Admin: 05/22/21 15:09 Dose: 1 cap Documented by: (Roflumilast [ Daliresp] 500 Mcg Tablet)*Pom* 0 mcg PO DAILY [facility] Last Admin: 05/22/21 15:08 Dose: 1 mcg Documented by: Ondansetron HCl (Ondansetron 4 Mg Tab.Dis) 4 mg PO Q6H PRN PRN Reason: Nausea able to take PO Ondansetron HCl (Ondansetron 4 Mg/2 Ml Sdv) 4 mg IV Q4H PRN PRN Reason: Nausea/Vomiting Oxycodone HCl (Oxycodone 5 Mg Tab) 5 mg PO Q4H PRN PRN Reason: Pain (moderate 4-6) Pantoprazole Sodium (Pantoprazole 40 Mg Tab.Cr) 40 mg PO ACBREAKFAST [facility] Sertraline HCl (Sertraline 50 Mg Tab) 150 mg PO DAILY [facility] Last Admin: 05/22/21 08:26 Dose: 150 mg Documented by: Simethicone (Simethicone 80 Mg Tab.Chew) 80 mg PO QID PRN PRN Reason: Gas Tamsulosin HCl (Tamsulosin 0.4 Mg Cap.Er) 0.4 mg PO BEDTIME [facility] Last Admin: 05/22/21 00:57 Dose: 0.4 mg Documented by: Timolol Maleate (Timolol Maleate 0.5% Ophth Soln 5 Ml Bottle*Pom*) 0 ml EYEBOTH BEDTIME [facility] Zolpidem Tartrate (Zolpidem 5 Mg Tab) 5 mg PO BEDTIME [facility] Last Admin: 05/22/21 00:58 Dose: 5 mg Documented by: Discontinued Medications Al Hydroxide/Mg Hydroxide 15 (ml/ Lidocaine HCl 15 ml) 0 ml PO ONETIME ONE Stop: 05/21/21 20:44 Last Admin: 05/21/21 21:05 Dose: 30 ml Documented by: Furosemide (Furosemide 40 Mg Tab) 40 mg PO Q48H [facility] Last Admin: 05/22/21 01:29 Dose: Not Given Documented by: Furosemide (Furosemide 40 Mg/4 Ml Vial) 40 mg IVPUSH ONETIME ONE Stop: 05/22/21 16:01 Last Admin: 05/22/21 16:12 Dose: 40 mg Documented by: Sodium Chloride (Normal Saline) 1,000 mls @ 500 mls/hr IV ASDIRECTED [facility] Last Admin: 05/21/21 18:58 Dose: 500 mls/hr Documented by: Azithromycin 500 mg/ Sodium (Chloride) 250 mls @ 250 mls/hr IV Q24H [facility] Stop: 05/24/21 00:59 Last Admin: 05/22/21 00:59 Dose: 250 mls/hr Documented by: Ceftriaxone Sodium 1 gm/ (Sodium Chloride) 50 mls @ 200 mls/hr IV Q24H [facility] Stop: 05/28/21 00:01 Last Admin: 05/22/21 00:59 Dose: 200 mls/hr Documented by: Sodium Chloride (Normal Saline) 1,000 mls @ 75 mls/hr IV ASDIRECTED [facility] Last Admin: 05/22/21 14:24 Dose: 75 mls/hr Documented by: Pantoprazole Sodium (Pantoprazole 40 Mg Vial) 40 mg IV DAILY [facility] Last Admin: 05/22/21 08:29 Dose: 40 mg Documented by: Potassium Chloride (Potassium Chloride 20 Meq Tab.Er) 20 meq PO ONETIME ONE Stop: 05/21/21 23:46 Last Admin: 05/22/21 00:58 Dose: 20 meq Documented by: Potassium Chloride (Potassium Chloride 20 Meq Tab.Er) 40 meq PO ONETIME ONE Stop: 05/22/21 16:01 Last Admin: 05/22/21 16:12 Dose: 40 meq Documented by: - Exam Quality Assessment: Supplemental Oxygen (1 L and may not be necessary) General: Alert, Oriented, Cooperative, No Acute Distress HEENT: Pupils Equal, EOMI, Mucous Membr. Moist/[place] Lungs: Clear to Auscultation, Normal Respiratory Effort. No: Wheezing Cardiovascular: Regular Rate, Regular Rhythm GI/Abdominal Exam: Normal Bowel Sounds, Soft, Non-Tender, No Distention Back Exam: Normal Inspection Extremities: Pedal Edema (1+ bilaterally to the lower calf) Skin: Warm, Dry, Intact Neurological: No New Focal Deficit Psy/Mental Status: Alert, Normal Affect, Normal Mood - Patient Data Lab Results Last 24 hrs: Laboratory Results - last 24 hr 05/21/21 05/22/21 05/22/21 Range/Units 18:50 05:30 05:30 WBC 7.2 (4.5-11.0) K/uL RBC 3.84 L (4.30-5.90) M/uL Hgb 12.5 (12.0-15.0) g/dL Hct 39.1 L (40.0-54.0) % MCV 102 H (80-98) fL MCH 33 H (27-31) pg MCHC 32 (32-36) % Plt Count 153 (150-400) K/uL Neut % (Auto) 90.7 H (36-66) % Lymph % (Auto) 7.7 L (24-44) % [place] % (Auto) 1.4 L (2-6) % Eos % (Auto) 0.1 L (2-4) % Baso % (Auto) 0.1 (0-1) % Sodium 142 144 (140-148) mmol/L Potassium 3.3 L 4.1 (3.6-5.2) mmol/L Chloride 103 107 (100-108) mmol/L Carbon Dioxide 27 28 (21-32) mmol/L Anion Gap 15.3 H 8.7 (5.0-14.0) mmol/L BUN 24 H 19 H (7-18) mg/dL Creatinine 1.6 H 1.2 (0.8-1.3) mg/dL Est Cr Clr Drug Dosing 32.13 42.84 mL/min Estimated GFR (MDRD) 41 L 58 L (>60) Glucose 101 135 H (74-106) mg/dL Calcium 8.7 8.5 (8.5-10.1) mg/dL Total Bilirubin 0.3 (0.2-1.0) mg/dL AST 17 (15-37) U/L ALT 24 (12-78) U/L Alkaline Phosphatase 60 (46-116) U/L Troponin I < 0.017 (0.000-0.056) ng/mL NT-Pro-B Natriuret Pep 1699 H (5-450) pg/mL Total Protein 6.3 L (6.4-8.2) g/dL Albumin 3.6 (3.4-5.0) g/dL Globulin 2.7 (2.3-3.5) g/dL Albumin/Globulin Ratio 1.3 (1.2-2.2) Result Diagrams: 05/22/21 05:30 05/22/21 05:30 Sepsis Event Note - Evaluation Sepsis Screening Result: No Definite Risk - Focused Exam Vital Signs: Vital Signs Temp Pulse Pulse Resp BP BP Pulse Ox 05/22/21 15:14 96.6 F L 84 18 109/57 L 96 05/22/21 13:21 96 05/22/21 10:38 97.1 F 92 16 131/64 95 05/22/21 10:24 98 05/22/21 08:26 151/78 H 05/22/21 08:24 94 151/78 H 05/22/21 08:21 151/78 H 05/22/21 08:04 97.4 F 96 18 140/92 H 95 - Problem List Review Problem List Initiated/Reviewed/Updated: Yes - My Orders Last 24 Hours: My Active Orders 05/22/21 11:54 Consult to Physical Therapy [PT Evaluation and Treatment] [CONS] Routine 05/23/21 09:00 Azithromycin [Zithromax] 500 mg PO DAILY - Plan Plan:: Acute decompensated heart failure versus COPD exacerbation with hypoxia or possi ble worsening of COPD with new need for home oxygen -IV Fluids for rehydration NS at 75 ml/hr -IV Antibiotic; Rocephin 1 gram IV every 24 hours has been stopped -IV Zithromax 500mg every 24 hours has been changed to oral -oxygen to keep sats greater than 95% -IV Solumedrol 62.5 mg every 6 hours -schedule Duo nebs every 6 hours, Albuterol nebs every 4 hours prn -Cpap at night with oxygen -Advise to notify nurses of any chest pain or other symptoms -Was given 40 mg IV furosemide for concern for fluid overload with possible edema on chest x-ray and pedal edema, with patient's history of severe lung disease this could possibly be right heart failure related. His most si gnificant symptom today is weakness. Congestive heart failure secondary to coronary Artery Disease status post CABG -continue outpatient medication plan Essential hypertension -continue outpatient medication Hypokalemia- Potassium 3.3 on admission -Potassium 20 meq one time Maintenance issues -Orders home medications: chronic medication -Nutrition- regular diet -Jhaveri catheter -not indicated at this time -DVT - Lovenox 40 mg subcut daily -PPI - IV Protonix 40mg daily CODE STATUS: DNR/DNI Plan: I am concerned that this is not a COPD exacerbation as the patient is a poor historian and after getting more details from the this may be more heart related. He has improved significantly and does not have a cough or sputum production. He does have a solar project manager in [place]. I think he needs to have an echo done when he is discharged. He was given IV furosemide for his fluid overload and will be reassessed in the morning. If his fluid status has improved and he is able to walk then we will discharge him for close follow-up with his solar project manager in [place]. Disposition: home with Family Primary care provider: Dr. Juan Luis Madrid, [facility], [facility]. Zena Li DO
[2021-05-22] MEDS: TIMOLOL MALEATE 0.5% EYEBOTH SCH (21:50)
[2021-05-22] MEDS: atorvaSTATin 20 MG Tab PO SCH (21:50)
[2021-05-23] MEDS: methylPREDNISolone Sodium Succinate 125 MG/2 ML SDV IV SCH ×2 (05:27→12:15)
[2021-05-23] MEDS: Acetaminophen 325 MG Tab PO PRN ×2 (05:31→17:56)
[2021-05-23] MEDS: Albuterol/Ipratropium 3.0-0.5 MG/3 ML Neb Soln NEB SCH ×5 (06:56→20:25)
[2021-05-23] MEDS: Pantoprazole 40 MG Tab.CR PO SCH (07:52)
[2021-05-23] MEDS: Metoprolol Tartrate 50 MG Tab PO SCH ×2 (08:35→20:29)
[2021-05-23] MEDS: Enoxaparin 40 MG/0.4 ML Syringe SUBCUT SCH (08:35)
[2021-05-23] MEDS: Azithromycin 250 MG Tab PO SCH (08:36)
[2021-05-23] MEDS: NIFEdipine 30 MG Tab.ER PO SCH (08:36)
[2021-05-23] MEDS: Folic Acid 1 MG Tab PO SCH (08:36)
[2021-05-23] MEDS: Gabapentin 300 MG Cap PO SCH ×3 (08:36→20:28)
[2021-05-23] MEDS: Isosorbide Mononitrate 30 MG Tab.ER PO SCH (08:37)
[2021-05-23] MEDS: Finasteride 5 MG Tab PO SCH (08:37)
[2021-05-23] MEDS: Sertraline 50 MG Tab PO SCH (08:37)
[2021-05-23] MEDS: ROFLUMILAST 500 MCG PO SCH (08:38)
[2021-05-23] MEDS: DIPYRIDAMOLE PO SCH ×2 (08:39→20:32)
[2021-05-23] MEDS: ASPIRIN PO SCH ×2 (08:39→20:32)
[2021-05-23] MEDS: Fluticasone Propionate Nasal Spray 16 GM Bottle NASBOTH SCH (08:41)
[2021-05-23] MEDS: Tamsulosin 0.4 MG Cap.ER PO SCH (20:27)
[2021-05-23] MEDS: atorvaSTATin 20 MG Tab PO SCH (20:28)
[2021-05-23] MEDS: TIMOLOL MALEATE 0.5% EYEBOTH SCH (20:28)
[2021-05-23] MEDS: Zolpidem 5 MG Tab PO SCH (21:31)
--- NOTE | 2021-05-23 21:35 | PCM.PN ---
- General Info Date of Service: 05/23/21 Admission Dx/Problem (Free Text): Admission Diagnosis/Problem Admission Diagnosis/Problem Acute decompensated heart failure Subjective Update: Mr. Vaughn was frustrated this morning. He is doing clinically significantly better and having significantly less shortness of breath. He was walked by physical therapy for 200 m and only desaturated to 88. He is not needing oxygen at baseline. Will occasionally have momentary dips of oxygen saturation. He has no other complaints besides shortness of breath. I had to extensive conversations with his today because of her desire to transfer him to [facility]. I called the [facility] hospitalist team and they did not have any beds available. She then wanted him transferred to a different hospital this evening not have the transfer until tomorrow morning. I told her that I do not believe he needs to be hospitalized as of tomorrow as his symptoms of heart failure have significantly improved. He is still unsteady on his feet however this is something that will take time to improve upon. I did end up making a plan with his about what to do in the next steps. Functional Status: Reports: Tolerating Diet, Ambulating, Urinating - Review of Systems General: Reports: Weakness, Appetite. Denies: Fever, Chills HEENT: Reports: Eye Pain (Chronic), Headaches (He states this is due to his right eye pain) Pulmonary: Reports: No Symptoms. Denies: Shortness of Breath, Cough, Wheezing Cardiovascular: Reports: No Symptoms. Denies: Chest Pain, Palpitations Gastrointestinal: Reports: No Symptoms. Denies: Abdominal Pain, Constipation, Diarrhea, Nausea, Vomiting Genitourinary: Reports: No Symptoms. Denies: Dysuria, Frequency, Urgency Musculoskeletal: Reports: No Symptoms Skin: Reports: No Symptoms Neurological: Reports: No Symptoms Psychiatric: Reports: No Symptoms - Patient Data Vitals - Most Recent: Last Vital Signs Temp 97.1 F 05/23/21 19:00 Pulse 90 05/23/21 20:29 Resp 18 05/23/21 19:00 BP 148/72 H 05/23/21 20:29 Pulse Ox 95 05/23/21 20:01 Orthostatic Blood Pressure [ 126/70 Standing] Orthostatic Blood Pressure [ 138/73 Sitting] Orthostatic Blood Pressure [ 134/72 Supine] Weight - Most Recent: 194 lb 4.8 oz I&O - Last 24 Hours: Intake & Output 05/23/21 05/23/21 05/23/21 06:59 14:59 22:59 Intake Total 200 1240 480 Output Total 250 Balance 200 990 480 Lab Results Last 24 Hours: Laboratory Results - last 24 hr 05/23/21 05/23/21 Range/Units 05:54 05:54 WBC 13.0 H (4.5-11.0) K/uL RBC 3.60 L (4.30-5.90) M/uL Hgb 12.1 (12.0-15.0) g/dL Hct 36.8 L (40.0-54.0) % MCV 102 H (80-98) fL MCH 34 H (27-31) pg MCHC 33 (32-36) % Plt Count 168 (150-400) K/uL Sodium 142 (140-148) mmol/L Potassium 4.2 (3.6-5.2) mmol/L Chloride 106 (100-108) mmol/L Carbon Dioxide 26 (21-32) mmol/L Anion Gap 10.4 (5.0-14.0) mmol/L BUN 22 H (7-18) mg/dL Creatinine 1.3 (0.8-1.3) mg/dL Est Cr Clr Drug Dosing 39.45 mL/min Estimated GFR (MDRD) 53 L (>60) Glucose 133 H (74-106) mg/dL Calcium 8.7 (8.5-10.1) mg/dL Med Orders - Current: Current Medications Acetaminophen (Acetaminophen 325 Mg Tab) 650 mg PO Q4H PRN PRN Reason: Pain (Mild 1-3)/fever Last Admin: 05/23/21 17:56 Dose: 650 mg Documented by: Albuterol (Albuterol 0.083% 2.5 Mg/3 Ml Neb Soln) 2.5 mg NEB Q4H PRN PRN Reason: Shortness Of Breath;wheezing Albuterol/Ipratropium (Albuterol/Ipratropium 3.0-0.5 Mg/3 Ml Neb Soln) 3 ml NEB QIDRT FRANCO Last Admin: 05/23/21 20:25 Dose: Not Given Documented by: Atorvastatin Calcium (Atorvastatin 20 Mg Tab) 40 mg PO BEDTIME [facility] Last Admin: 05/23/21 20:28 Dose: 40 mg Documented by: Azithromycin (Azithromycin 250 Mg Tab) 500 mg PO DAILY [facility] Last Admin: 05/23/21 08:36 Dose: 500 mg Documented by: Bisacodyl (Bisacodyl 5 Mg Tab) 5 mg PO DAILY PRN PRN Reason: Constipation Clonazepam (Clonazepam 0.5 Mg Tab) 0.5 mg PO BID PRN PRN Reason: Anxiety Docusate Sodium (Docusate Sodium 100 Mg Cap) 100 mg PO BID PRN PRN Reason: Constipation Enoxaparin Sodium (Enoxaparin 40 Mg/0.4 Ml Syringe) 40 mg SUBCUT DAILY [facility] Last Admin: 05/23/21 08:35 Dose: 40 mg Documented by: Finasteride (Finasteride 5 Mg Tab) 5 mg PO DAILY [facility] Last Admin: 05/23/21 08:37 Dose: 5 mg Documented by: Fluticasone Propionate (Fluticasone Propionate Nasal Hannah 16 Gm Bottle) 0 gm NASBOTH DAILY [facility] Last Admin: 05/23/21 08:41 Dose: Not Given Documented by: Folic Acid (Folic Acid 1 Mg Tab) 1 mg PO DAILY [facility] Last Admin: 05/23/21 08:36 Dose: 1 mg Documented by: Furosemide (Furosemide 40 Mg Tab) 40 mg PO Q48H [facility] Last Admin: 05/22/21 08:20 Dose: 40 mg Documented by: Gabapentin (Gabapentin 300 Mg Cap) 300 mg PO TID [facility] Last Admin: 05/23/21 20:28 Dose: 300 mg Documented by: Isosorbide Mononitrate (Isosorbide Mononitrate 30 Mg Tab.Er) 15 mg PO DAILY [facility] Last Admin: 05/23/21 08:37 Dose: 15 mg Documented by: Metoprolol Tartrate (Metoprolol Tartrate 50 Mg Tab) 50 mg PO BID [facility] Last Admin: 05/23/21 20:29 Dose: 50 mg Documented by: Morphine Sulfate (Morphine 2 Mg/Ml Syringe) 2 mg IVPUSH Q2H PRN PRN Reason: Pain (severe 7-10) Nifedipine (Nifedipine 30 Mg Tab.Er) 60 mg PO DAILY [facility] Last Admin: 05/23/21 08:36 Dose: 60 mg Documented by: Nitroglycerin (Nitroglycerin 0.4 Mg Tab.Sl) 0.4 mg SL ASDIRECTED PRN PRN Reason: Chest Pain (Aspirin/Dipyridamole [ Aggrenox 200-25 Mg] 1 Cap Cap.Er) 0 cap PO BID [facility] Last Admin: 05/23/21 20:32 Dose: 1 cap Documented by: (Roflumilast [ Daliresp] 500 Mcg Tablet)*Pom* 0 mcg PO DAILY [facility] Last Admin: 05/23/21 08:38 Dose: 500 mcg Documented by: Ondansetron HCl (Ondansetron 4 Mg Tab.Dis) 4 mg PO Q6H PRN PRN Reason: Nausea able to take PO Ondansetron HCl (Ondansetron 4 Mg/2 Ml Sdv) 4 mg IV Q4H PRN PRN Reason: Nausea/Vomiting Oxycodone HCl (Oxycodone 5 Mg Tab) 5 mg PO Q4H PRN PRN Reason: Pain (moderate 4-6) Pantoprazole Sodium (Pantoprazole 40 Mg Tab.Cr) 40 mg PO ACBREAKFAST [facility] Last Admin: 05/23/21 07:52 Dose: 40 mg Documented by: Sertraline HCl (Sertraline 50 Mg Tab) 150 mg PO DAILY [facility] Last Admin: 05/23/21 08:37 Dose: 150 mg Documented by: Simethicone (Simethicone 80 Mg Tab.Chew) 80 mg PO QID PRN PRN Reason: Gas Tamsulosin HCl (Tamsulosin 0.4 Mg Cap.Er) 0.4 mg PO BEDTIME [facility] Last Admin: 05/23/21 20:27 Dose: 0.4 mg Documented by: Timolol Maleate (Timolol Maleate 0.5% Ophth Soln 5 Ml Bottle*Pom*) 0 ml EYEBOTH BEDTIME [facility] Last Admin: 05/23/21 20:28 Dose: 1 drop Documented by: Zolpidem Tartrate (Zolpidem 5 Mg Tab) 5 mg PO BEDTIME [facility] Last Admin: 05/22/21 21:46 Dose: 5 mg Documented by: Discontinued Medications Al Hydroxide/Mg Hydroxide 15 (ml/ Lidocaine HCl 15 ml) 0 ml PO ONETIME ONE Stop: 05/21/21 20:44 Last Admin: 05/21/21 21:05 Dose: 30 ml Documented by: Furosemide (Furosemide 40 Mg Tab) 40 mg PO Q48H [facility] Last Admin: 05/22/21 01:29 Dose: Not Given Documented by: Furosemide (Furosemide 40 Mg/4 Ml Vial) 40 mg IVPUSH ONETIME ONE Stop: 05/22/21 16:01 Last Admin: 05/22/21 16:12 Dose: 40 mg Documented by: Sodium Chloride (Normal Saline) 1,000 mls @ 500 mls/hr IV ASDIRECTED [facility] Last Admin: 05/21/21 18:58 Dose: 500 mls/hr Documented by: Azithromycin 500 mg/ Sodium (Chloride) 250 mls @ 250 mls/hr IV Q24H [facility] Stop: 05/24/21 00:59 Last Admin: 05/22/21 00:59 Dose: 250 mls/hr Documented by: Ceftriaxone Sodium 1 gm/ (Sodium Chloride) 50 mls @ 200 mls/hr IV Q24H [facility] Stop: 05/28/21 00:01 Last Admin: 05/22/21 00:59 Dose: 200 mls/hr Documented by: Sodium Chloride (Normal Saline) 1,000 mls @ 75 mls/hr IV ASDIRECTED [facility] Last Admin: 05/22/21 14:24 Dose: 75 mls/hr Documented by: Methylprednisolone Sodium Succinate (Methylprednisolone Sodium Succinate 125 Mg/2 Ml Sdv) 62.5 mg IV Q6H [facility] Last Admin: 05/23/21 12:15 Dose: 62.5 mg Documented by: Pantoprazole Sodium (Pantoprazole 40 Mg Vial) 40 mg IV DAILY [facility] Last Admin: 05/22/21 08:29 Dose: 40 mg Documented by: Potassium Chloride (Potassium Chloride 20 Meq Tab.Er) 20 meq PO ONETIME ONE Stop: 05/21/21 23:46 Last Admin: 05/22/21 00:58 Dose: 20 meq Documented by: Potassium Chloride (Potassium Chloride 20 Meq Tab.Er) 40 meq PO ONETIME ONE Stop: 05/22/21 16:01 Last Admin: 05/22/21 16:12 Dose: 40 meq Documented by: - Exam General: Alert, Oriented, Cooperative, No Acute Distress HEENT: Pupils Equal, EOMI, Mucous Membr. Moist/Marked Tree Lungs: Clear to Auscultation, Normal Respiratory Effort Cardiovascular: Regular Rate, Regular Rhythm GI/Abdominal Exam: Normal Bowel Sounds, Soft, Non-Tender, No Organomegaly, No Distention Back Exam: Normal Inspection Extremities: Normal Inspection, Pedal Edema (Improved since yesterday, 1+ to the ankle bilaterally) Peripheral Pulses: 2+: Radial (L) (Normal), Radial (R) (Normal) Skin: Warm, Dry, Intact Neurological: No New Focal Deficit Psy/Mental Status: Alert, Normal Affect, Normal Mood - Patient Data Lab Results Last 24 hrs: Laboratory Results - last 24 hr 05/23/21 05/23/21 Range/Units 05:54 05:54 WBC 13.0 H (4.5-11.0) K/uL RBC 3.60 L (4.30-5.90) M/uL Hgb 12.1 (12.0-15.0) g/dL Hct 36.8 L (40.0-54.0) % MCV 102 H (80-98) fL MCH 34 H (27-31) pg MCHC 33 (32-36) % Plt Count 168 (150-400) K/uL Sodium 142 (140-148) mmol/L Potassium 4.2 (3.6-5.2) mmol/L Chloride 106 (100-108) mmol/L Carbon Dioxide 26 (21-32) mmol/L Anion Gap 10.4 (5.0-14.0) mmol/L BUN 22 H (7-18) mg/dL Creatinine 1.3 (0.8-1.3) mg/dL Est Cr Clr Drug Dosing 39.45 mL/min Estimated GFR (MDRD) 53 L (>60) Glucose 133 H (74-106) mg/dL Calcium 8.7 (8.5-10.1) mg/dL Result Diagrams: 05/23/21 05:54 05/23/21 05:54 Sepsis Event Note - Evaluation Sepsis Screening Result: No Definite Risk - Focused Exam Vital Signs: Vital Signs Temp Temp Pulse Pulse Resp BP BP 05/23/21 20:29 90 148/72 H 05/23/21 20:01 05/23/21 19:00 97.1 F 88 18 150/73 H 05/23/21 15:47 98.1 F 88 16 124/60 05/23/21 14:40 82 05/23/21 12:48 05/23/21 10:53 84 05/23/21 10:45 98.2 F 83 20 140/86 Pulse Ox 05/23/21 20:29 05/23/21 20:01 95 05/23/21 19:00 100 05/23/21 15:47 94 L 05/23/21 14:40 05/23/21 12:48 89 L 05/23/21 10:53 05/23/21 10:45 96 - Problem List Review Problem List Initiated/Reviewed/Updated: Yes - My Orders Last 24 Hours: My Active Orders 05/23/21 07:29 Daily Weight [Height and Weight] [RC] 0500 05/23/21 09:00 Azithromycin [Zithromax] 500 mg PO DAILY - Plan Plan:: Acute decompensated heart failure versus COPD exacerbation with hypoxia or possible worsening of COPD with new need for home oxygen -IV Antibiotic; Rocephin 1 gram IV every 24 hours has been stopped -IV Zithromax 500mg every 24 hours has been changed to oral -oxygen to keep sats greater than 95% -IV Solumedrol 62.5 mg every 6 hours has been stopped -schedule Duo nebs every 6 hours, Albuterol nebs every 4 hours prn -Cpap at night with oxygen -Advise to notify nurses of any chest pain or other symptoms -IV furosemide 40 mg 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 I had extensive 20- minute and then 30-minute conversation with his today about the plans for his discharge. We settled on him being discharged tomorrow with a walker and follow-up for physical therapy. We will try to get this together tomorrow morning. If we are not able to get physical therapy set up for him before she wants to leave tomorrow then she is willing to have us call her with that information. She wants him to do physical [facility] at [facility] in [place]. He do have a walker in house that he can use and his did sign for that this evening. Disposition: home with Family Primary care provider: Dr. Juan Luis Madrid, [facility], [facility]. Zena Li, DO
[2021-05-24] MEDS: Albuterol/Ipratropium 3.0-0.5 MG/3 ML Neb Soln NEB SCH ×2 (07:03→10:45)
[2021-05-24] MEDS: Pantoprazole 40 MG Tab.CR PO SCH (07:43)
[2021-05-24] MEDS: Furosemide 40 MG Tab PO SCH (07:43)
[2021-05-24] MEDS: Acetaminophen 325 MG Tab PO PRN (09:00)
[2021-05-24] MEDS: ROFLUMILAST 500 MCG PO SCH (09:01)
[2021-05-24] MEDS: NIFEdipine 30 MG Tab.ER PO SCH (09:02)
[2021-05-24] MEDS: Finasteride 5 MG Tab PO SCH (09:02)
[2021-05-24] MEDS: Gabapentin 300 MG Cap PO SCH (09:03)
[2021-05-24] MEDS: Isosorbide Mononitrate 30 MG Tab.ER PO SCH (09:03)
[2021-05-24] MEDS: DIPYRIDAMOLE PO SCH (09:04)
[2021-05-24] MEDS: ASPIRIN PO SCH (09:04)
[2021-05-24] MEDS: Folic Acid 1 MG Tab PO SCH (09:04)
[2021-05-24] MEDS: Fluticasone Propionate Nasal Spray 16 GM Bottle NASBOTH SCH (09:04)
[2021-05-24] MEDS: Azithromycin 250 MG Tab PO SCH (09:05)
[2021-05-24] MEDS: Metoprolol Tartrate 50 MG Tab PO SCH (09:05)
[2021-05-24] MEDS: Enoxaparin 40 MG/0.4 ML Syringe SUBCUT SCH (09:05)
[2021-05-24] MEDS: Sertraline 50 MG Tab PO SCH (09:06)
--- NOTE | 2021-05-24 14:40 | PCM.DCSUM1 ---
Discharge Summary - Hospital Course Free Text/Narrative:: Mr. Vaughn is an 85-year-old white male who presented with shortness of breath while staying in the cabin in [facility]. He had had been having 4 days of shortness of breath and increasing weakness with difficulty walking. He was also experiencing 3 days of epigastric chest pain with associated dizziness headache shortness of breath and cough. He was also having episodes of hypoxia with oxygen saturations in the 80s. Was brought by EMS. He has a history of COPD Gold criteria 4 with frequent exacerbations and regularly takes outpatient azithromycin to prevent infection. He does use oxygen at night with his CPAP device and has for the past 10 years. He also has an extensive cardiac history that began in the s when he had a heart attack and triple bypass. He has had episodes of heart failure since then the most recent being about a year ago before the pandemic. On arrival to the emergency department he received a chest x-ray which showed generalized interstitial prominence representing either pneumonitis versus edema. He also had a elevated BNP at 1699. He was admitted to the floors for suspected COPD exacerbation versus heart failure. He was started on antibiotics and IV fluids. He was then given Lasix which significantly improved his symptoms. His weakness did not improve over his stay. He was seen by PT and is now walking well with a new walker. He will go home with an additional dose of azithromycin to complete a 5-day course and will follow up with physical therapy in [place] where he lives. Diagnosis: Stroke: No Modified Barron Scale: Slight Disable;Unable to Carry Out Prev Act.Able to Look After Affairs Modified Barron Scale Score: 2 - Discharge Data Discharge Date: 05/24/21 Discharge Disposition: Home, Self-Care 01 Condition: Good - Referral to Home Health Primary Care Physician: PCP None - Discharge Diagnosis/Problem(s) (1) Acute decompensated heart failure SNOMED Code(s): 19123741, 630261110 ICD Code: I50.9 - HEART FAILURE, UNSPECIFIED Status: Acute (2) COPD (chronic obstructive pulmonary disease) SNOMED Code(s): 66839787 ICD Code: J44.9 - CHRONIC OBSTRUCTIVE PULMONARY DISEASE, UNSPECIFIED Status: Acute Qualifiers: COPD type: chronic bronchitis (3) Weakness SNOMED Code(s): 30025756 ICD Code: R53.1 - WEAKNESS Status: Acute Priority: Low Onset Date: ~05/18/21 Problem Details: Unsteady gait requiring a walker for assistance - Patient Summary/Data Consults: Consultations 05/22/21 11:54 Consult to Physical Therapy [PT Evaluation and Treatment] [CONS] Routine Please Evaluate and Treat. PT Reason for Consult: Balance This query below is only for informational purposes and is not editable. Admission Diagnosis/Problem: Chronic obstructive pulmonary disease with hypoxia - Patient Instructions Diet: Heart Healthy Diet - Discharge Plan Prescriptions/Med Rec: Azithromycin [Zithromax] 500 mg PO DAILY 1 Days tablet Home Medications: Home Meds Albuterol [Proventil Neb Soln] 1 ampule INH QID PRN 05/21/21 [History] Aspirin 81 mg PO DAILY 05/21/21 [History] Aspirin/Dipyridamole [Aggrenox 200-25 MG] 1 cap PO BID 05/21/21 [History] Azithromycin 250 mg PO DAILY 05/21/21 [History] Budesonide/Formoterol Fumarate [Symbicort 160-4.5 Mcg Inhaler] 2 puff IH BID 05/21/21 [History] Cetirizine [ZyrTEC] 10 mg PO DAILY 05/21/21 [History] ClonazePAM [KlonoPIN] 0.5 mg PO BID PRN 05/21/21 [History] Finasteride 5 mg PO DAILY 05/21/21 [History] Fluticasone Propionate [Flonase] 2 spray NASBOTH DAILY 05/21/21 [History] Folic Acid 0.8 mg PO DAILY 05/21/21 [History] Furosemide [Lasix] 40 mg PO Q48H 05/21/21 [History] Gabapentin [Neurontin] 300 mg PO TID 05/21/21 [History] Ipratropium [Atrovent HFA] 1 puff INH Q6H PRN 05/21/21 [History] Isosorbide Mononitrate [Imdur] 15 mg PO DAILY 05/21/21 [History] Metoprolol Tartrate 50 mg PO BID 05/21/21 [History] NIFEdipine [Adalat cc] 60 mg PO DAILY 05/21/21 [History] Nitroglycerin 0.4 mg SL ASDIRECTED PRN 05/21/21 [History] Omeprazole 20 mg PO ACBREAKFAST 05/21/21 [History] Roflumilast [Daliresp] 500 mcg PO DAILY 05/21/21 [History] Sertraline [Zoloft] 150 mg PO DAILY 05/21/21 [History] Simethicone 80 mg PO QID PRN 05/21/21 [History] Tamsulosin [Flomax] 0.4 mg PO BEDTIME 05/21/21 [History] Timolol [Betimol 0.5% Ophth Soln] 1 drop OP BEDTIME 05/21/21 [History] Zolpidem Tartrate [Ambien] 5 mg PO BEDTIME 05/21/21 [History] atorvaSTATin [Lipitor] 40 mg PO BEDTIME 05/21/21 [History] guaiFENesin [Mucinex] 1,200 mg PO DAILY 05/21/21 [History] Azithromycin [Zithromax] 500 mg PO DAILY 1 Days tablet 05/24/21 [Rx] Patient Handouts: Chronic Obstructive Pulmonary Disease Exacerbation, [id number], Heart Failure, Self Care, [id number] Referrals: PCP,None [Primary Care Provider] - - Discharge Summary/Plan Comment DC Time >30 min.: Yes Discharge Summary/Plan Comment: I had extensive conversations with his over the past 3 days regarding his condition and follow-up. We came together on a plan to have him do outpatient therapy for the weakness in [place]. We also decided to continue the azithromycin course to complete 5 days as he would have had to take in this outpatient from his PCP next week anyways. She was advised to follow-up with his PCP for the weakness and with his keyseater operator regarding the acute decompensated heart failure. She was also advised that the keyseater operator would likely want to get a repeat echo as he has not had an echo in years he has had at least 2 exacerbations since then. - General Info Date of Service: 05/24/21 Admission Dx/Problem (Free Text: Admission Diagnosis/Problem Admission Diagnosis/Problem Acute decompensated heart failure, Weakness Subjective Update: Mr. Vaughn is walking well with a walker and feeling significantly less weak. He is not requiring any additional oxygen at this time. He is having no shortness of breath, epigastric pain, chest pain, or palpitations. He had no complaints at the time of discharge. Functional Status: Reports: Tolerating Diet, Ambulating, Urinating. Denies: New Symptoms - Review of Systems General: Reports: Weakness (Significantly improved), Appetite. Denies: Fever, Fatigue HEENT: Reports: Eye Pain, Other (He states the glaucoma in his right eye is bothering him but he will follow up with ophthalmology) Pulmonary: Reports: No Symptoms. Denies: Shortness of Breath, Pleuritic Chest Pain, Cough, Wheezing Cardiovascular: Reports: No Symptoms. Denies: Chest Pain, Palpitations, Dyspnea on Exertion Gastrointestinal: Reports: No Symptoms. Denies: Abdominal Pain, Constipation, Diarrhea, Nausea, Vomiting Genitourinary: Reports: No Symptoms. Denies: Dysuria, Frequency, Urgency Musculoskeletal: Reports: No Symptoms Skin: Reports: No Symptoms Neurological: Reports: No Symptoms. Denies: Dizziness, Headache - Patient Data Vitals - Most Recent: Last Vital Signs Temp 97.7 F 05/24/21 11:35 Pulse 77 05/24/21 11:35 Resp 16 05/24/21 11:35 BP 102/51 L 05/24/21 11:35 Pulse Ox 94 L 05/24/21 11:35 Orthostatic Blood Pressure [ 126/70 Standing] Orthostatic Blood Pressure [ 138/73 Sitting] Orthostatic Blood Pressure [ 134/72 Supine] Weight - Most Recent: 194 lb 4.8 oz I&O - Last 24 hours: Intake & Output 05/23/21 05/24/21 05/24/21 22:59 06:59 14:59 Intake Total 480 360 320 Balance 480 360 320 Med Orders - Current: Current Medications Discontinued Medications Acetaminophen (Acetaminophen 325 Mg Tab) 650 mg PO Q4H PRN PRN Reason: Pain (Mild 1-3)/fever Last Admin: 05/24/21 09:00 Dose: 650 mg Documented by: Albuterol (Albuterol 0.083% 2.5 Mg/3 Ml Neb Soln) 2.5 mg NEB Q4H PRN PRN Reason: Shortness Of Breath;wheezing Last Admin: 05/24/21 02:39 Dose: 2.5 mg Documented by: Albuterol/Ipratropium (Albuterol/Ipratropium 3.0-0.5 Mg/3 Ml Neb Soln) 3 ml NEB QIDRT FRANCO Last Admin: 05/24/21 10:45 Dose: 3 ml Documented by: Atorvastatin Calcium (Atorvastatin 20 Mg Tab) 40 mg PO BEDTIME [facility] Last Admin: 05/23/21 20:28 Dose: 40 mg Documented by: Azithromycin (Azithromycin 250 Mg Tab) 500 mg PO DAILY [facility] Last Admin: 05/24/21 09:05 Dose: 500 mg Documented by: Bisacodyl (Bisacodyl 5 Mg Tab) 5 mg PO DAILY PRN PRN Reason: Constipation Clonazepam (Clonazepam 0.5 Mg Tab) 0.5 mg PO BID PRN PRN Reason: Anxiety Al Hydroxide/Mg Hydroxide 15 (ml/ Lidocaine HCl 15 ml) 0 ml PO ONETIME ONE Stop: 05/21/21 20:44 Last Admin: 05/21/21 21:05 Dose: 30 ml Documented by: Docusate Sodium (Docusate Sodium 100 Mg Cap) 100 mg PO BID PRN PRN Reason: Constipation Enoxaparin Sodium (Enoxaparin 40 Mg/0.4 Ml Syringe) 40 mg SUBCUT DAILY [facility] Last Admin: 05/24/21 09:05 Dose: 40 mg Documented by: Finasteride (Finasteride 5 Mg Tab) 5 mg PO DAILY [facility] Last Admin: 05/24/21 09:02 Dose: 5 mg Documented by: Fluticasone Propionate (Fluticasone Propionate Nasal [place] 16 Gm Bottle) 0 gm NASBOTH DAILY [facility] Last Admin: 05/24/21 09:04 Dose: 2 sprays Documented by: Folic Acid (Folic Acid 1 Mg Tab) 1 mg PO DAILY [facility] Last Admin: 05/24/21 09:04 Dose: 1 mg Documented by: Furosemide (Furosemide 40 Mg Tab) 40 mg PO Q48H [facility] Last Admin: 05/22/21 01:29 Dose: Not Given Documented by: Furosemide (Furosemide 40 Mg Tab) 40 mg PO Q48H [facility] Last Admin: 05/24/21 07:43 Dose: 40 mg Documented by: Furosemide (Furosemide 40 Mg/4 Ml Vial) 40 mg IVPUSH ONETIME ONE Stop: 05/22/21 16:01 Last Admin: 05/22/21 16:12 Dose: 40 mg Documented by: Gabapentin (Gabapentin 300 Mg Cap) 300 mg PO TID [facility] Last Admin: 05/24/21 09:03 Dose: 300 mg Documented by: Sodium Chloride (Normal Saline) 1,000 mls @ 500 mls/hr IV ASDIRECTED [facility] Last Admin: 05/21/21 18:58 Dose: 500 mls/hr Documented by: Azithromycin 500 mg/ Sodium (Chloride) 250 mls @ 250 mls/hr IV Q24H [facility] Stop: 05/24/21 00:59 Last Admin: 05/22/21 00:59 Dose: 250 mls/hr Documented by: Ceftriaxone Sodium 1 gm/ (Sodium Chloride) 50 mls @ 200 mls/hr IV Q24H [facility] Stop: 05/28/21 00:01 Last Admin: 05/22/21 00:59 Dose: 200 mls/hr Documented by: Sodium Chloride (Normal Saline) 1,000 mls @ 75 mls/hr IV ASDIRECTED [facility] Last Admin: 05/22/21 14:24 Dose: 75 mls/hr Documented by: Isosorbide Mononitrate (Isosorbide Mononitrate 30 Mg Tab.Er) 15 mg PO DAILY [facility] Last Admin: 05/24/21 09:03 Dose: 15 mg Documented by: Methylprednisolone Sodium Succinate (Methylprednisolone Sodium Succinate 125 Mg/2 Ml Sdv) 62.5 mg IV Q6H [facility] Last Admin: 05/23/21 12:15 Dose: 62.5 mg Documented by: Metoprolol Tartrate (Metoprolol Tartrate 50 Mg Tab) 50 mg PO BID [facility] Last Admin: 05/24/21 09:05 Dose: 50 mg Documented by: Morphine Sulfate (Morphine 2 Mg/Ml Syringe) 2 mg IVPUSH Q2H PRN PRN Reason: Pain (severe 7-10) Nifedipine (Nifedipine 30 Mg Tab.Er) 60 mg PO DAILY [facility] Last Admin: 05/24/21 09:02 Dose: 60 mg Documented by: Nitroglycerin (Nitroglycerin 0.4 Mg Tab.Sl) 0.4 mg SL ASDIRECTED PRN PRN Reason: Chest Pain (Aspirin/Dipyridamole [ Aggrenox 200-25 Mg] 1 Cap Cap.Er) 0 cap PO BID [facility] Last Admin: 05/24/21 09:04 Dose: 1 cap Documented by: (Roflumilast [ Daliresp] 500 Mcg Tablet)*Pom* 0 mcg PO DAILY [facility] Last Admin: 05/24/21 09:01 Dose: 1 mcg Documented by: Ondansetron HCl (Ondansetron 4 Mg Tab.Dis) 4 mg PO Q6H PRN PRN Reason: Nausea able to take PO Ondansetron HCl (Ondansetron 4 Mg/2 Ml Sdv) 4 mg IV Q4H PRN PRN Reason: Nausea/Vomiting Oxycodone HCl (Oxycodone 5 Mg Tab) 5 mg PO Q4H PRN PRN Reason: Pain (moderate 4-6) Pantoprazole Sodium (Pantoprazole 40 Mg Vial) 40 mg IV DAILY [facility] Last Admin: 05/22/21 08:29 Dose: 40 mg Documented by: Pantoprazole Sodium (Pantoprazole 40 Mg Tab.Cr) 40 mg PO ACBREAKFAST [facility] Last Admin: 05/24/21 07:43 Dose: 40 mg Documented by: Potassium Chloride (Potassium Chloride 20 Meq Tab.Er) 20 meq PO ONETIME ONE Stop: 05/21/21 23:46 Last Admin: 05/22/21 00:58 Dose: 20 meq Documented by: Potassium Chloride (Potassium Chloride 20 Meq Tab.Er) 40 meq PO ONETIME ONE Stop: 05/22/21 16:01 Last Admin: 05/22/21 16:12 Dose: 40 meq Documented by: Sertraline HCl (Sertraline 50 Mg Tab) 150 mg PO DAILY [facility] Last Admin: 05/24/21 09:06 Dose: 150 mg Documented by: Simethicone (Simethicone 80 Mg Tab.Chew) 80 mg PO QID PRN PRN Reason: Gas Tamsulosin HCl (Tamsulosin 0.4 Mg Cap.Er) 0.4 mg PO BEDTIME [facility] Last Admin: 05/23/21 20:27 Dose: 0.4 mg Documented by: Timolol Maleate (Timolol Maleate 0.5% Ophth Soln 5 Ml Bottle*Pom*) 0 ml EYEBOTH BEDTIME [facility] Last Admin: 05/23/21 20:28 Dose: 1 drop Documented by: Zolpidem Tartrate (Zolpidem 5 Mg Tab) 5 mg PO BEDTIME [facility] Last Admin: 05/23/21 21:31 Dose: 5 mg Documented by: - Exam Quality Assessment: Denies: Supplemental Oxygen General: Reports: Alert, Oriented, Cooperative, No Acute Distress HEENT: Reports: Pupils Equal, EOMI, Mucous Membr. Moist/[place] Lungs: Reports: Clear to Auscultation, Normal Respiratory Effort Cardiovascular: Reports: Regular Rate, Regular Rhythm GI/Abdominal Exam: Normal Bowel Sounds, Soft, Non-Tender, No Distention Back Exam: Reports: Normal Inspection Extremities: Pedal Edema (1+ to the ankle and usual for him) Skin: Reports: Warm, Dry, Intact Neurological: Reports: No New Focal Deficit Psy/Mental Status: Reports: Alert, Normal Affect, Normal Mood
== END 2021-05-24 14:05 | disposition home or self-care (01) | DRG 292 ==
LOC: JP.ED 17:38 → JP.MS 22:38
PROVIDERS: ADMIT Internal Medicine; ATTEND Internal Medicine
DX: I11.0 Hypertensive heart disease with heart failure (principal); R26.81 Unsteadiness on feet; R09.02 Hypoxemia; J44.1 Chronic obstructive pulmonary disease with (acute) exacerbation; I50.9 Heart failure, unspecified; Z66 Do not resuscitate; E78.00 Pure hypercholesterolemia, unspecified; R32 Unspecified urinary incontinence; I25.10 Atherosclerotic heart disease of native coronary artery without angina pectoris; E87.6 Hypokalemia; Z99.81 Dependence on supplemental oxygen; Z95.1 Presence of aortocoronary bypass graft; Z98.49 Cataract extraction status, unspecified eye; Z79.51 Long term (current) use of inhaled steroids; Z79.82 Long term (current) use of aspirin; Z79.899 Other long term (current) drug therapy; I25.2 Old myocardial infarction; Z88.0 Allergy status to penicillin; Z88.8 Allergy status to other drugs, medicaments and biological substances; Z88.1 Allergy status to other antibiotic agents
CPT/HCPCS: 36415; 71046; 71046-26; 80048; 80053; 81001; 83880; 84484; 85025; 85027; 93005; 93010; 94640; 94762; 97110-GP; 97162-GP; 97530-GP; 97535-GP; 99284; 99285-25; A9270-GY; C9113; J0456; J0696; J1650; J1940; J2930; J7030; J7050; J7620-GY